=== PATIENT | male | born 1990 | race Caucasian/White ===

== ENCOUNTER 2018-07-03 13:27 | Emergency (ER) | payer SELFPAY ==
[~2018-07-03] VITALS: Ht 175.3 cm; Wt 77.1 kg
[2018-07-03 14:05] VITALS: BP 144/89
[2018-07-03] MEDS ORDERED: IBUP-1007 PO (14:11)
--- NOTE | 2018-07-03 14:11 | PHYS DOC ---
Adult General Chief Complaint Chief Complaint: GROIN PAIN HPI HPI Patient is a 28 year old who presents to the emergency Department today with complaints of a hernia in his left groin for several years. Patient states he developed a hernia when he was in intermediate weightlifting. He was supposed to have surgery to correct the hernia but was unable to go through with the procedure. He denies any recent injury. He states that the hernia is reducible. He denies any bulging of the hernia at this time. He rates his pain a 9 out of 10 on the pain scale and states that the pain gets worse at night. He denies any dysuria, hematuria, or back pain. Patient states at times he does have difficulty initiating his stream. Review of Systems Review of Systems Constitutional: Denies fever or chills [] GI: See history of present illness : Denies testicular pain, dysuria, or hematuria [] Musculoskeletal: Denies back pain Integument: Denies rash or skin lesions [] Neurologic: Denies headache, focal weakness or sensory changes [] Physical Exam Physical Exam Constitutional: Well developed, well nourished, no acute distress, non-toxic appearance. [] HENT: Normocephalic, atraumatic, bilateral external ears normal, nose normal. [] Eyes: conjunctiva normal, no discharge. [] Neck: Normal range of motion, no stridor. [] Lungs & Thorax: Respirations even and unlabored, no retractions, no respiratory distress Abdomen: soft, no tenderness, no masses, no pulsatile masses. : no bulging, erythema, or TTP of left groin, testicles appear normal[] Skin: Warm, dry, no erythema, no rash. [] Extremities: No cyanosis, ROM intact, no edema. [] Neurologic: Alert and oriented X 3, no focal deficits noted. [] Psychologic: Affect normal, judgement normal, mood normal. [] EKG EKG [] Radiology/Procedures Radiology/Procedures [] Course & Med Decision Making Course & Med Decision Making Pertinent Labs and Imaging studies reviewed. (See chart for details) DX: left groin pain No evidence of strangulated hernia on exam. Prescription for ibuprofen 600 mg QID prn pain. Follow up with Dr. Myers for further evaluation and tx of hernia. [] Dragon Disclaimer Dragon Disclaimer This electronic medical record was generated, in whole or in part, using a voice recognition dictation system. Departure Departure Impression: Primary Impression: Left groin pain Additional Impression: History of left inguinal hernia Disposition: HOME, SELF-CARE Condition: STABLE Referrals: NO PCP (PCP) MEL MYERS MD Patient Instructions: Inguinal Hernia, Adult Additional Instructions: Fill the prescription and use it as directed. Return to the ER if you are unable to reduce the hernia. Follow-up with Dr. Myers for surgical repair of your hernia. Scripts Ibuprofen (IBUPROFEN) 600 Mg Tablet 600 MG PO PRN Q6HRS PRN for PAIN for 10 Days, #30 TAB 0 Refills Prov: MEI VELEZ APRN 07/03/18 Problem Qualifiers MEI VELEZ APRN Jul 03, 2018 14:11
[2018-07-03] MEDS ORDERED: IBUPROFEN 400 MG TABLET. PO ONE (14:15)
== END 2018-07-03 14:41 | disposition home or self-care (01) ==
LOC: ER 13:27
DX: R10.32 Left lower quadrant pain (principal)
CPT/HCPCS: 99282